=== PATIENT | male | born 1935 | race Caucasian/White ===

== ENCOUNTER 2018-12-13 08:01 | Inpatient (IN) ==
--- NOTE | 2018-12-13 08:26 | Emergency Department Note ---
Disposition Clinical Impression: Left hip pain, History of CVA with residual deficit, Inability to ambulate due to hip, Bradycardia Disposition: Admitted As Inpatient Condition: Fair Referrals: Viraj Mendiola DO [Primary Care Provider] - Forms: ED Satisfaction Letter Time of Disposition: 11:42 General Adult HPI - General Chief complaint: ED Fall Stated complaint: left hip pain Time Seen by Provider: 12/13/18 08:06 Source: patient, EMS Mode of arrival: EMS Limitations: no limitations Nursing Notes Reviewed: Yes Vital Signs Reviewed: Yes - History of Present Illness HPI Narrative: 83-year-old male history of left-sided CVA, hypertension presents an emergency department via EMS for left hip pain. States approximately a week ago while on a golf cart he attempted to step out when he twisted his ankle and fell. Since then he has been having increased discomfort in his left hip. This morning 3 hours prior to arrival at 0530 states he woke up and was having a hard time standing. Believes it could be secondary to the pain. He has normal baseline weakness of his left leg and it does appear to be near his baseline at this time. Does not recall any recent falls since then. Does not take any anticoagulants. He believes he does taken aspirin. Of note EMS checked his vitals and noticed that his heart rate was in the 30s. She was reportedly asymptomatic per the reports but 0.5 mg atropine was given and currently his heart rate is 70. The patient denies ever having palpitations, chest pain, shortness of breath, confusion or headache. The is at bedside and states he is been acting his normal self. He denies a history of cardiac ischemic disease or heart attacks in the past. He has had multiple orthopedic surgeries. Pain Scale: 9 - Related Data Home Medications Medication Instructions Recorded Confirmed Cholecalciferol (Vitamin D3) 50,000 unit PO QWEEK 10/23/15 10/23/15 [Vitamin D3] Citalopram Hydrobromide [Celexa] 20 mg PO DAILY 10/23/15 10/23/15 Ferrous Sulfate [Iron] 325 mg PO DAILY 10/23/15 10/23/15 Iron Polysaccharide Complex 150 mg PO DAILY 10/23/15 10/23/15 [Ferrex 150] Levothyroxine [Synthroid] 125 mcg PO QAM 10/23/15 10/23/15 Losartan Potassium [Cozaar] 50 mg PO DAILY 10/23/15 10/23/15 Omeprazole [PriLOSEC] 20 mg PO DAILY 10/23/15 10/23/15 cloNIDine HCl [CloNIDine HCl] 0.1 mg PO DAILY 10/23/15 10/23/15 Previous Rx's Medication Instructions Recorded HYDROcodone/Acet 5/325 mg [[place] 1 tab PO Q6H PRN #12 tab 02/03/16 5-325 mg] OxyCODONE/APAP 10/325 [Percocet 1 each PO Q6HR PRN #20 tablet 05/06/16 10/325 MG] Docusate [Colace] 100 mg PO BID #30 capsule 07/02/16 Acetaminophen [Tylenol] 1,000 mg PO TID #30 tablet 10/28/17 Allergies Allergy/AdvReac Type Severity Reaction Status Date / Time Penicillins [PCN] Allergy Hives Verified 12/30/17 15:09 All systems ED: reviewed and negative except as stated. Review of Systems: As Per HPI Constitutional: Denies: fever, chills Cardiovascular: Denies: chest pain, palpitations Respiratory: Denies: dyspnea Gastrointestinal: Denies: abdominal pain, nausea, vomiting Musculoskeletal: Reports: arthralgia. Denies: back pain Neurological: Denies: headache, weakness, numbness, paresthesias, confusion Past Medical History - Past Medical History Attestation: Yes The following information was validated with the patient. Source: patient Medical history: Reports: CVA, other Surgical history: Reports: arthroscopy, orthopedic, other (left shoulder replacement), vasectomy, other Psychiatric history: Reports: no psych history - Social History Smoking Status: Never smoker Smokeless Tobacco Status: No Alcohol use: Reports: none Drug use: Reports: none Physical Exam - General Limitations: no limitations General appearance: alert, in no apparent distress - Head Head exam: atraumatic, normocephalic, normal inspection - Eye Eye exam: Present: EOMI, other (Left eyelid droop, baseline) - ENT ENT exam: normal exam, normal oropharynx, mucous membranes moist - Neck Neck exam: Present: normal inspection, full ROM, trachea midline - Chest Chest inspection: Present: normal inspection, symmetric chest wall rise - Respiratory Respiratory exam: Present: normal lung sounds bilaterally. Absent: respiratory distress, wheezes - Cardiovascular Cardiovascular exam: Present: regular rate, normal rhythm, normal heart sounds - Expanded Cardiovascular Exam Peripheral pulses: 2+: radial (R), radial (L), dorsalis pedis (R), dorsalis pedis (L) - Abdominal Exam Abdominal exam: Present: soft, Non-Tender, normal bowel sounds. Absent: tenderness, distention, guarding, rebound, rigidity - Extremities Exam Extremities exam: Present: full ROM (Limited on his left side), other (Left upper extremity with contractures to fingers, stiffness to his left leg) - Expanded Lower Extremity Exam Hip/Pelvis exam: Present: full ROM (He is able to flex his left hip and knee, for range of motion to the right extremity), tenderness (Left hip), pelvis stable Upper leg exam: Present: normal inspection, full ROM Knee exam: Present: normal inspection, full ROM Lower leg exam: Present: normal inspection, full ROM Ankle exam: Present: normal inspection, full ROM Foot/toe exam: Present: normal inspection, full ROM Neurovascular/Tendon exam: Absent: motor deficit, sensory deficit, tendon deficit - Neurological Exam Neurological exam: Present: alert, oriented X3 - Expanded Neurological Exam Patient oriented to: Present: person, place, time Speech: Present: fluid speech Cranial nerves: EOM function (II, III, IV, ): Normal, facial sensation (V): Normal, facial palsy (VII): Abnormal Left, spinal accessory function (XI): Normal, tongue deviation (XII): Normal Motor strength - LUE: 5/5 Motor strength - RUE: 5/5 Motor strength - LLE: 5/5 Motor strength - RLE: 5/5 Upper motor neuron exam: syl neglect: Absent bilaterally, pronator drift: Absent bilaterally Sensory exam upper extremity: light touch: Normal Sensory exam lower extremity: light touch: Normal Coma Scale Eye Opening: Spontaneous Coma Scale Motor Response: Obeys Commands Coma Scale Verbal Response: Oriented Coma Scale Total: 15 - Psychiatric Psychiatric exam: Present: normal affect, normal mood - Skin Skin exam: Present: warm, dry, intact, normal color. Absent: rash, cyanosis, diaphoresis Course Course Narrative: Patient presents with left hip pain worse today when he woke up. Here he reports history of previous follow about a week ago. During this time he has been able to ambulate bear weight up until is morning. He does have a history of CVA with baseline weakness on the side. At this time will obtain some imaging of his hip and get some labs as well as CT of his head. - Reevaluation(s) Reevaluation #1: CT of the head was unremarkable. Show some chronic atrophy. His left hip showed possible fracture and we will proceed with the CT scan. His labs show baseline abnormalities including hyperkalemia and renal insufficiency. He is aware of this and it appears to be at his baseline. No aggressive treatments at this time. Pain is well-controlled at this time. Will await the CT scan for further evaluation. 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 We attempted the stand the patient up and he was unable to bear weight due to the weakness and significant discomfort. It required 2 of us to do this. He typically is able to ambulate with a cane. At this time patient will require admission for his left hip pain for possible MRI imaging. He is agreeable to this plan. His resuscitation status he is full code. Impression is left hip pain and inability to ambulate with history of CVA. He is agreeable to this plan. Time: 11:41 - Consultations Consultation #1: Spoke with on-call hospitalist matti Matt to admit for left hip pain, inability to ambulate, history of CVA with left-sided weakness. No further orde rs at this time Time: 11:41 Vital Signs Temperature 98.7 F 12/13/18 08:06 Pulse Rate 62 12/13/18 08:06 Respiratory Rate 18 12/13/18 08:06 Blood Pressure 166/84 12/13/18 08:06 O2 Sat by Pulse Oximetry 100 12/13/18 08:06 Temperature 98.7 F 12/13/18 08:06 Pulse Rate 54 12/13/18 10:47 Respiratory Rate 12 12/13/18 10:47 Blood Pressure 177/88 12/13/18 10:47 O2 Sat by Pulse Oximetry 94 12/13/18 10:47 Oxygen Delivery Oxygen Delivery Room Air Medical Decision Making - MDM Narrative Medical decision making narrative: Patient was discussed with my attending physician who agrees with ED management and final disposition. They independently evaluated the patient. Please refer to their attestation to this encounter for additional information. This note was generated by [employer] recognition software and as a result grammatical or spelling errors may occur using this program. - Medical Records Medical records reviewed: Yes I reviewed the patient's medical records. - Lab Data Lab results reviewed: Yes I reviewed the patient's lab results. Result diagrams: 12/13/18 09:04 12/13/18 09:04 Lab Results 12/13/18 12/13/18 Range/Units 09:04 09:04 WBC 3.6 L (4.3-11.1) K/mcL RBC 4.26 (4.19-5.50) M/mcL Hgb 12.5 L (12.9-16.9) g/dL Hct 37.6 (37.5-50.1) % MCV 88.3 (83.0-100.0) fL MCH 29.3 (28.0-33.3) pg MCHC 33.2 (31.6-35.5) g/dL RDW 13.4 (11.5-14.5) % Plt Count 118 L (140-400) K/mcL MPV 10.5 (9.4-12.4) fL Sodium 139 (136-145) mEq/L Potassium 5.2 H (3.5-5.1) mEq/L Chloride 108 H (98-107) mEq/L Carbon Dioxide 18 L (23-29) mEq/L BUN 30 H (8-23) mg/dL Creatinine 2.19 H (0.70-1.30) mg/dL Est GFR ( Amer) 35 L (> 60) Est GFR (Non-Af Amer) 29 L (> 60) BUN/Creatinine Ratio 14 (6-26) Glucose 81 (70-105) mg/dL Calculated Osmolality 293 (280-300) Calcium 9.3 (8.6-10.3) mg/dL Troponin I < 0.03 (< 0.04) ng/mL - Radiology Data Radiology results reviewed: Yes I reviewed the patient's radiology results. Cervical Spine CT 12/13/18 08:10 IMPRESSION: No acute abnormality of the cervical spine. D/ / Jewel Love MD / Jewel Love MD Interpreting Provider: Jewel Love MD Head CT 12/13/18 08:10 IMPRESSION: No acute intracranial abnormality or interval change control specialist the past year. Generalized atrophy and moderate old microvascular ischemic change both cerebral hemispheres. Mild to moderate prominence of the ventricular system may be related to global tissue loss but cannot exclude some hydrocephalus-stable over the past year. D/ / Viraj Askew MD / Viraj Askew MD Interpreting Provider: Viraj Askew MD Hip X-Ray 12/13/18 08:10 IMPRESSION: Possible, mildly displaced left posterior acetabular fracture. Osteopenia. D/ / Mao Browne MD / Mao Browne MD Interpreting Provider: Mao Browne MD Chest X-Ray 12/13/18 08:23 IMPRESSION: 1. No acute cardiopulmonary disease. 2. Mild cardiomegaly. D/ / 12/13/2018 08:57:39 Chrystal Erickson MD / dave Interpreting Provider: Chrystal Erickson MD Hip CT 12/13/18 09:22 IMPRESSION: 1. Mild left hip osteoarthrosis. Underlying CPPD. Finding on the plain radiograph likely represents chondrocalcinosis. 2. No acute fracture or gross dislocation. Diffuse osteopenia. 3. Atherosclerotic calcification of the vasculature. D/ / 12/13/2018 10:08:16 Donn Garcia MD / dave Interpreting Provider: Donn Garcia MD - EKG Data EKG #1 EKG attestation: Yes I reviewed and interpreted this EKG. EKG results narrative: EKG performed 812 normal sinus rhythm 66 beats per minute, normal axis, good R wave progression, it appears he has a MD interval of 361 consistent with first- degree AV block, no dropped QRS, no ST elevation or depression. Compared to prior EKG performed 11/29/2014 which does show consistent first-degree AV block but with peak T waves. No acute ischemic changes. Attestation Statement - Attestation Attestation: Patient was seen with resident physician. I reviewed the history, physical, assessment and plan, and agree with the findings. I also personally evaluated this patient and had [id number] time with this patient. 83-year-old male presents to the emergency Department chief complaint of left hip pain. Patient states that he fell approximately week ago getting out of a golf cart. He denies loss of consciousness or impacting the head. He says he falls mechanical. He said though today he woke up around 5:00 and had difficulty ambulating secondary to the level of pain it is in his left hip. He denies additional falls. Patient does have a history of stroke on that side. He has some residual weakness and some contractures secondary to that. He denies any other strokelike symptoms at this time. He does not believe there is on a anticoagulant. No fevers or chills. No chest pain or short of breath. As an incidental finding EMS noticed that his heart rate was in the 30s. EKG confirmed this. Although he is asymptomatic use given atropine eye while in route. His heart rate is been in the 70s since. Patient remains asymptomatic from a cardiac perspective. Review of systems as above remainder negative. Physical exam vital signs were stable. ENT is unremarkable. Heart regular rhythm and rate. Lungs are clear. Adamant soft nontender. Extremities patient is tender left hip especially with internal/external rotation. Position of comfort he has the muscles tightened. Neurologically he is alert and oriented. He has no new focal deficits E does have some muscle contracture and some decreased strength to the left upper and left lower extremity. There is no slurred speech or changes in facial expression at this time. Skin he is got some rashes in the left lower extremity where he says he scratched himself. And extremities otherwise there is no shortening of the limb distal pulses are intact and no obvious signs of traumatic injury. ED course. We will do cardiac and neurologic workup on him considering his history of stroke. I do not think he has had an acute stroke at this point. We will check for fracture of the hip as well as any neurologic issues or cardiac issues. Difficult to assess why the patient was bradycardic, but he was asymptomatic with this. Lab and EKG workup was unremarkable. X-ray of the hip was questionable for fracture of the acetabulum. CT scan of the head and neck and hip did not reveal any acute abnormalities. We attempted multiple times to ambulate the patient were unsuccessful in doing so. Patient just had too much pain. He will need to be admitted for PT OT and also evaluation of this bra dycardia. Hemodynamically he was stable in the emergency department. Agree with resident physician assessment plan. I agree with resident physician assessment and plan. ED procedures. I reviewed the patient's EKG as well as the resident physician interpretation and I agree with the findings. It should also be noted that I reviewed the EKG from EMS which did demonstrate a sinus bradycardia.
[2018-12-13 09:33] LABS: Hematocrit 37.6 % (37.5-50.1); Hemoglobin 12.5 g/dL (12.9-16.9); Mean Corpuscular HGB Conc 33.2 g/dL (31.6-35.5); Mean Corpuscular Hemoglobin 29.3 pg (28.0-33.3); Mean Corpuscular Volume 88.3 fL (83.0-100.0); Mean Platelet Volume 10.5 fL (9.4-12.4); Platelet Count 118 K/mcL (140-400); Red Blood Count 4.26 M/mcL (4.19-5.50); Red Cell Distribution Width 13.4 % (11.5-14.5); White Blood Count 3.6 K/mcL (4.3-11.1)
[2018-12-13 10:00] LABS: Troponin I < 0.03 ng/mL (< 0.04)
[2018-12-13 10:18] LABS: BUN/Creatinine Ratio 14 (6-26); Blood Urea Nitrogen 30 mg/dL (8-23); Calcium 9.3 mg/dL (8.6-10.3); Carbon Dioxide 18 mEq/L (23-29); Chloride 108 mEq/L (98-107); Glucose 81 mg/dL (70-105); Osmolality,Calculated 293 (280-300); Potassium 5.2 mEq/L (3.5-5.1); Sodium 139 mEq/L (136-145); eGFR For African Americans 35 (> 60); eGFR For Non-African Americans 29 (> 60)
--- NOTE | 2018-12-13 12:08 | Internal Med History&Physical ---
Date of Encounter: 12/13/18 Time of Encounter: 12:08 Internal Medicine - H&P: HPI Chief complaint: FALL History of present illness: 83-year-old male history of left-sided CVA, hypertension who presented to the ER with left hip pain that started about a week ago. The patient stated that he sustained a fall about a week when his ankle got twisted, since then he has been complaining of a progressive worsening of left hip pain to the extent that now he is unable to ambulate due to the severity of the pain. The patient has history of CVA with residual weakness on the left side. The patient is not in any anticoagulation. The patient denies chest pain, palpitation, orthopnea, paroxysmal nocturnal dyspnea, progressive worsening of lower extremity edema. The patient also denies abdominal pain, nausea, vomiting, diarrhea, changes of urinary habit or bowel habits. It was also reported that the patient has an episode of bradycardia of 30 and was treated with atropine, his heart rate is reportedly maximal normal since then. The patient did not recall any symptoms during his transport and he is not aware of a heart condition or history of coronary artery disease. The patient was evaluated by the ER staff and CT scan of the head revealed mild left hip osteoarthrosis, underlying CPPD, chondrocalcinosis, no acute fracture or gross dislocation, diffuse osteopenia. Past Med Surg Social Fam HX - Past Medical History Medical history: CVA, other Additional medical history: LLE weakness from previous CVA Psychiatric history: no psych history - Past Surgical History Surgical History: arthroscopy, orthopedic, other (left shoulder replacement), vasectomy, other Additional surgical history: jaw surgery, fx rib, colonoscopy, hammer toe, shoulder replacement - Social History Smoking Status: Never smoker Smokeless Tobacco Status: No Alcohol use: none Drug use: none Internal Medicine - H&P: Meds Cholecalciferol (Vitamin D3) [Vitamin D3] 50,000 unit PO SUTH 10/23/15 [History] Levothyroxine [Synthroid] 125 mcg PO QAM 10/23/15 [History] Losartan Potassium [Cozaar] 50 mg PO DAILY 10/23/15 [History] cloNIDine HCl [CloNIDine HCl] 0.1 mg PO BID 10/23/15 [History] Citalopram Hydrobromide [Citalopram HBr] 40 mg PO DAILY 12/13/18 [History] Donepezil [Aricept] 5 mg PO HS 12/13/18 [History] Gemfibrozil 600 mg PO BID 12/13/18 [History] Iron Polysaccharide Complex [Ferrex 150] 150 mg PO DAILY 12/13/18 [History] Pantoprazole Sodium [Protonix] 40 mg PO DAILY 12/13/18 [History] Allergy/AdvReac Type Severity Reaction Status Date / Time Penicillins [PCN] Allergy Hives Verified 12/13/18 15:35 All Systems PM: A 10-system review of systems was performed and is negative for pertinent findings except as documented above in the HPI. - Constitutional Vitals: Temp Pulse Resp BP Pulse Ox 98.7 F 54 12 177/88 94 12/13/18 08:06 12/13/18 10:47 12/13/18 10:47 12/13/18 10:47 12/13/18 10:47 General appearance: Present: A&O X 3 Exam: ` - Head Head exam: Present: atraumatic, normocephalic - Neck Neck exam general surgery: Present: supple, trachea midline. Absent: lymphadenopathy - Respiratory Respiratory exam: Present: CTAB. Absent: accessory muscle use, rales, rhonchi, wheezes - Cardiovascular Cardiovascular exam: Present: bradycardia, RRR, +S1, +S2. Absent: diastolic murmur, gallop, rubs, systolic murmur - GI/Abdominal GI/Abdominal exam: Present: normal bowel sounds, soft, no peritoneal signs. Absent: distended, tenderness - Extremities Exam Extremities exam: Present: warm, radial pulses palpable and symmetrical. Absent: calf tenderness, cyanotic, pedal edema Internal Med - H&P Results - Labs CBC & Chem 7: 12/14/18 00:54 12/14/18 00:54 Labs: Short CBC 12/13/18 Range/Units 09:04 WBC 3.6 L (4.3-11.1) K/mcL Hgb 12.5 L (12.9-16.9) g/dL Hct 37.6 (37.5-50.1) % Plt Count 118 L (140-400) K/mcL BMP 12/13/18 09:04 Sodium 139 Potassium 5.2 H Chloride 108 H Carbon Dioxide 18 L BUN 30 H Creatinine 2.19 H Glucose 81 Calcium 9.3 Cardiac Enzymes 12/13/18 Range/Units 09:04 Troponin I < 0.03 (< 0.04) ng/mL - Impressions ITS Impressions Cervical Spine CT 12/13/18 08:10 IMPRESSION: No acute abnormality of the cervical spine. D/ / Jewel Love MD / Jewel Love MD Interpreting Provider: Jewel Love MD Head CT 12/13/18 08:10 IMPRESSION: No acute intracranial abnormality or interval interchange agent the past year. Generalized atrophy and moderate old microvascular ischemic change both cerebral hemispheres. Mild to moderate prominence of the ventricular system may be related to global tissue loss but cannot exclude some hydrocephalus-stable over the past year. D/ / Viraj Askew MD / Viraj Askew MD Interpreting Provider: Viraj Askew MD Hip X-Ray 12/13/18 08:10 IMPRESSION: Possible, mildly displaced left posterior acetabular fracture. Osteopenia. D/ / Mao Browne MD / Mao Browne MD Interpreting Provider: Mao Browne MD Chest X-Ray 12/13/18 08:23 IMPRESSION: 1. No acute cardiopulmonary disease. 2. Mild cardiomegaly. D/ / 12/13/2018 08:57:39 Chrystal Erickson MD / [facility] Interpreting Provider: Chrystal Erickson MD Hip CT 12/13/18 09:22 IMPRESSION: 1. Mild left hip osteoarthrosis. Underlying CPPD. Finding on the plain radiograph likely represents chondrocalcinosis. 2. No acute fracture or gross dislocation. Diffuse osteopenia. 3. Atherosclerotic calcification of the vasculature. D/ / 12/13/2018 10:08:16 Donn Garcia MD / dave Interpreting Provider: Donn Garcia MD - Assessment and Plan (1) Left hip pain Current Visit: Yes Status: Acute Assessment and plan: he patient stated that he sustained a fall about a week when his ankle got twisted, since then he has been complaining of a progressive worsening of left hip pain to the extent that now he is unable to ambulate due to the severity of the pain. The patient was evaluated by the ER staff and CT scan of the head revealed mild left hip osteoarthrosis, underlying CPPD, chondrocalcinosis, no acute fracture or gross dislocation, diffuse osteopenia. I spoke with orthopedic surgeon contact center manager, I appreciate his recommendation, he requested MRI of the left hip to rule out occult fracture. He will see the patient in a.m. and consult. (2) History of CVA with residual deficit Current Visit: Yes Status: Acute (3) Bradycardia Current Visit: Yes Status: Acute Assessment and plan: There is a reported that the patient have an episode of bradycardia while in the ambulance, he was at symptomatic. His heart rate been around 60s while in the ER. EKG performed by ER staff , their interpolation was "normal sinus rhythm 66 beats per minute, normal axis, good R wave progression, it appears he has a [place] interval of 361 consistent with first-degree AV block, no dropped QRS, no ST elevation or depression. Compared to prior EKG performed 11/29/2014 which does show consistent first-degree AV block but with peak T waves. No acute ischemic changes" We will place the patient on telemetry. I spoke with Dr. Hunter, appreciated his input. He stated no to treat asymptomatic bradycardia until heart rate is less than 40. He will see florencianet in consult. (4) Inability to ambulate due to hip Current Visit: Yes Status: Acute Assessment and plan: We will consult also for further evaluation of the current CT scan finding, we will start DVT OT when cleared by ortho (5) CVA (cerebral vascular accident) Current Visit: No Status: Chronic Qualifiers: CVA mechanism: unspecified Qualified Code(s): I63.9 - Cerebral infarction, unspecified (6) History of DVT (deep vein thrombosis) Current Visit: No Status: Chronic (7) GERD (gastroesophageal reflux disease) Current Visit: No Status: Chronic Qualifiers: Esophagitis presence: esophagitis presence not specified Qualified Code(s): K21.9 - Gastro-esophageal reflux disease without esophagitis (8) Hypothyroidism Current Visit: No Status: Acute Assessment and plan: We will start home thyroxine. Qualifiers: Qualified Code(s): E03.9 - Hypothyroidism, unspecified (9) Hypertension Current Visit: Yes Status: Chronic Qualifiers: Hypertension type: essential hypertension Qualified Code(s): I10 - Essential (primary) hypertension (10) CKD (chronic kidney disease) stage 4, GFR 15-29 ml/min Current Visit: Yes Status: Acute Assessment and plan: Creatinine at baseline, will continue to monitor renal function, renal dosing of medication but current EGFR, avoid nephrotoxic meds. (11) Hyperkalemia Current Visit: Yes Status: Acute Assessment and plan: Multifactorial secondary to renal impairment in the setting of metabolic acidosis and potassium shift as well as angiotensin receptor inhibitors. We will hold losartan for now, start the patient on sodium bicarbonate 3 times a day and titrate dose. No reported EKG changes (12) Metabolic acidosis Current Visit: Yes Status: Acute Assessment and plan: Most likely secondary to impaired ammoniagenesis in the setting of advanced chronic kidney disease, we will start the patient on sodium bicarbonate 3 times a day and titrate dose, target bicarbonate level is 22. - Time Spent With Patient Total time spent is greater than 50% in coordination of care (as documented) at patient's floor/unit and/or counseling patient:
[2018-12-13] MEDS ORDERED: Acetaminophen 325 MG TABLET PO PRN (12:21)
[2018-12-13] MEDS ORDERED: Ondansetron 4 MG/2 ML VIAL IVP PRN (12:21)
[2018-12-13] MEDS ORDERED: *HR* HYDROcodone/Acet 5/325 mg TABLET PO PRN (12:21)
[2018-12-13] MEDS ORDERED: Naloxone 0.4 MG/ML INJ IVP PRN (12:21)
[2018-12-13] MEDS ORDERED: *HR* Atropine Sulfate 1 MG/10 ML SYRINGE IVP STA (15:27)
[2018-12-13 15:31] LABS: Troponin I < 0.03 ng/mL (< 0.04)
[2018-12-13] MEDS: 0.9 % Sodium Chloride 1,000 ML IVC SCH (21:31)
[2018-12-14 01:05] LABS: Basophils % 0.4 %; Eosinophils # 0.2 K/mcL (0.0-0.6); Eosinophils % 3.2 %; Hematocrit 35.5 % (37.5-50.1); Hemoglobin 11.9 g/dL (12.9-16.9); Immature Granulocytes % 0.2 % (0-4); Lymphocytes % 21.1 %; Mean Corpuscular HGB Conc 33.5 g/dL (31.6-35.5); Mean Corpuscular Hemoglobin 30.3 pg (28.0-33.3); Mean Corpuscular Volume 90.3 fL (83.0-100.0); Mean Platelet Volume 10.1 fL (9.4-12.4); Monocytes # 0.5 K/mcL (0.0-1.3); Monocytes % 9.9 %; Neutrophils # 3.1 K/mcL (1.6-8.9); Platelet Count 113 K/mcL (140-400); Red Blood Count 3.93 M/mcL (4.19-5.50); Red Cell Distribution Width 13.2 % (11.5-14.5); Segmented Neutrophils % 65.2 %; White Blood Count 4.7 K/mcL (4.3-11.1)
[2018-12-14 01:13] LABS: INR 1.1; Prothrombin Time 12.7 Seconds (9.4-12.1)
[2018-12-14 01:16] LABS: Activated Partial Thrombo Time 40.4 Seconds (26.0-36.0)
[2018-12-14 01:21] LABS: Albumin 3.6 g/dL (3.5-5.7); Albumin/Globulin Ratio 1.4 (1.1-2.2); Bilirubin,Total 0.4 mg/dL (0.3-1.0); Calcium 8.9 mg/dL (8.6-10.3); Chol/HDL Ratio 3.8 (0-4.9); Globulin 2.6 g/dL (2.4-3.5); Magnesium 1.6 mg/dL (1.6-2.6); Phosphorous 3.4 mg/dL (2.7-4.5); Total Protein 6.2 g/dL (6.4-8.9)
[2018-12-14] MEDS: 0.9 % Sodium Chloride 1,000 ML IVC SCH (04:10)
--- NOTE | 2018-12-14 07:15 | Orthopedic Consult Note ---
Date of Encounter: 12/14/18 Time of Encounter: 07:12 Assessment and Plan (1) Pain in left hip Current Visit: Yes Status: Acute I did have a long discussion with the patient regarding the diagnosis. He does have proximal lateral thigh pain consistent with mild greater trochanteric bursitis. He says this has begun to feel better. My recommendation is oral anti-inflammatories, therapy, and outpatient follow-up. I will obtain an x-ray of the left ankle as this was the initial injury. Weightbearing as tolerated on the bilateral lower extremities. Follow up with [facility] upon discharge. I will be around for reconsultation as needed for any new issues. I have reviewed each of the pertinent components of this chart and any other pertinent medical component(s) including but not limited to pertinent application of the chief complaint, history of present illness, current medication, medical history, allergies, family history, medical history, surgical history, social history, review of systems, vital signs, and any other portion of the pertinent patient medical record directly or indirectly involved with this patient care that is pertinent based on my medical decision process. BRAYAN Wilhelm History of Present Illness HPI: Mr. Haynes is a 83 year old male who is admitted to the hospitalist. 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 The patient twisted his ankle and fell about a week ago and has had progressive proximal lateral thigh pain. He is unable to characterize the quality of the pain, just says it hurts. This has prevented him from being able to ambulate. He is undergone x-rays, CT scan, and an MRI and orthopedics is consulted to assist in the evaluation of the patient. On my evaluation this morning the patient indicates that his pain has improved, however he has not tried to ambulate yet today. He denies any numbness, tingling, or any other associated signs or symptoms. No modifying factors. Past Med Surg Social Fam HX - Past Medical History Medical history: CVA, other Additional medical history: LLE weakness from previous CVA Psychiatric history: no psych history - Past Surgical History Surgical History: arthroscopy, orthopedic, other (left shoulder replacement), vasectomy, other Additional surgical history: jaw surgery, fx rib, colonoscopy, hammer toe, shoulder replacement - Social History Smoking Status: Never smoker Smokeless Tobacco Status: No Alcohol use: none Drug use: none Medications and Allergies Cholecalciferol (Vitamin D3) [Vitamin D3] 50,000 unit PO SUTH 10/23/15 [History] Levothyroxine [Synthroid] 125 mcg PO QAM 10/23/15 [History] Losartan Potassium [Cozaar] 50 mg PO DAILY 10/23/15 [History] cloNIDine HCl [CloNIDine HCl] 0.1 mg PO BID 10/23/15 [History] Citalopram Hydrobromide [Citalopram HBr] 40 mg PO DAILY 12/13/18 [History] Donepezil [Aricept] 5 mg PO HS 12/13/18 [History] Gemfibrozil 600 mg PO BID 12/13/18 [History] Iron Polysaccharide Complex [Ferrex 150] 150 mg PO DAILY 12/13/18 [History] Pantoprazole Sodium [Protonix] 40 mg PO DAILY 12/13/18 [History] Allergy/AdvReac Type Severity Reaction Status Date / Time Penicillins [PCN] Allergy Hives Verified 12/13/18 15:35 All Systems Reviewed: Constitutional -The patient denies any fevers, chills, or feelings of illness Neurologic -The patient denies any numbness, tingling, or burning pains Physical Exam - Constitutional Vitals: Temp Pulse Resp BP Pulse Ox 98.1 F 45 14 165/73 97 12/14/18 04:23 12/14/18 04:23 12/14/18 04:23 12/14/18 04:23 12/14/18 04:23 Constitutional -Vitals reviewed -The patient is well developed and well nourished. -Mood is pleasant. -The patient is well groomed. Psychiatric -The patient is fully alert and oriented x 3. Respiratory: -Respiratory effort normal Abdomen: -Soft abdomen -Non tender -Non distended: Left upper extremity: -No deformities. The overlying skin is intact. No obvious signs of acute trauma. -No tenderness to palpation throughout. -No significant pain with passive motion of the shoulder, elbow, wrist, and fingers within the limits of the bed. -Able to make an "OK" sign, cross the index and long fingers, and extend the thumb. -Sensation grossly intact to light touch throughout the median, radial, and ulnar distributions. -Radial pulse is present; Fingers have good capillary refill. Right upper extremity: -No deformities. The overlying skin is intact. No obvious signs of acute trauma. -No tenderness to palpation throughout. -No significant pain with passive motion of the shoulder, elbow, wrist, and fingers within the limits of the bed. -Able to make an "OK" sign, cross the index and long fingers, and extend the thumb. -Sensation grossly intact to light touch throughout the median, radial, and ulnar distributions. -Radial pulse is present; Fingers have good capillary refill. Left lower extremity: -No deformities. The overlying skin is intact. No obvious signs of acute trauma. -Mild tenderness over the greater trochanteric bursa -No pain with passive motion of the hip, knee, ankle, and toes within the limits of the bed. -No pain with axial loading of the thigh. -Able to dorsiflex and plantarflex the ankle and toes. -Sensation is grossly intact to light touch throughout the sural, saphenous, superficial peroneal, and deep peroneal distributions. -Toes have good capillary refill. Right lower extremity: -No deformities. The overlying skin is intact. No obvious signs of acute trauma. -No tenderness to palpation throughout. -No pain with passive motion of the hip, knee, ankle, and toes within the limits of the bed. -No pain with axial loading of the thigh. -Able to dorsiflex and plantarflex the ankle and toes. -Sensation is grossly intact to light touch throughout the sural, saphenous, superficial peroneal, and deep peroneal distributions. -Toes have good capillary refill. Diagnostic Imaging: I did personally review and interpret x-rays, CT scan, and MRI of the left hip which show no fractures. There is degenerative change, however. Results - Labs Result Diagrams: 12/14/18 00:54 12/14/18 00:54 Labs: Abnormal lab results WBC 3.6 K/mcL (4.3-11.1) L 12/13/18 09:04 RBC 3.93 M/mcL (4.19-5.50) L 12/14/18 00:54 Hgb 11.9 g/dL (12.9-16.9) L 12/14/18 00:54 Hct 35.5 % (37.5-50.1) L 12/14/18 00:54 Plt Count 113 K/mcL (140-400) L 12/14/18 00:54 PT 12.7 Seconds (9.4-12.1) H 12/14/18 00:54 APTT 40.4 Seconds (26.0-36.0) H 12/14/18 00:54 Potassium 5.2 mEq/L (3.5-5.1) H 12/13/18 09:04 Chloride 108 mEq/L (98-107) H 12/13/18 09:04 Carbon Dioxide 18 mEq/L (23-29) L 12/13/18 09:04 BUN 33 mg/dL (8-23) H 12/14/18 00:54 2.20 mg/dL (0.70-1.30) H 12/14/18 00:54 Est GFR ( Amer) 35 (> 60) L 12/14/18 00:54 Est GFR (Non-Af Amer) 29 (> 60) L 12/14/18 00:54 ALT 6 Units/L (7-52) L 12/14/18 00:54 154 Units/L (34-104) H 12/14/18 00:54 6.2 g/dL (6.4-8.9) L 12/14/18 00:54 34 mg/dL (40-59) L 12/14/18 00:54 TSH 0.150 mcIU/mL (0.340-5.600) L 12/13/18 14:59 H & H 12/13/18 12/14/18 Range/Units 09:04 00:54 Hgb 12.5 L 11.9 L (12.9-16.9) g/dL Hct 37.6 35.5 L (37.5-50.1) % All other labs normal. Consult Discharge Plan - Plan Referrals: Viraj Mendiola DO [Primary Care Provider] -
--- NOTE | 2018-12-14 08:03 | Cardiology Consult Note ---
<Kiah Head N - Last Filed: 12/14/18 11:11> Date of Encounter: 12/14/18 Time of Encounter: 08:03 Assessment and Plan (1) Bradycardia Current Visit: Yes Status: Acute Suspect multifactorial etiology including underlying conduction abnormality (based on patient's age), medication effect, and thyroid dysfunction. ECG is significant for 1st degree AV block. Telemetry review shows average HR 51, with occasional nocturnal pauses. On evaluation, patient denies any chest pain, shortness of breath, fatigue, dizziness, or lightheadedness. Medical history is notable for hypothyroidism, with home medication of synthroid 125mcg daily. TSH was notably decreased, at 0.150 on laboratory studies. Recommendations: - At this time, no indication for pacemaker placement, as patient has evidence of reversible causes for this problem. - Decrease clonidine from 0.1mg BID to 0.1mg daily. - Recommend adjustment of thyroid medication to achieve euthyroid state. - Echocardiogram pending. Patient will need followup and additional workup with outpatient cardiology clinic. (2) Hypertension Current Visit: Yes Status: Chronic History of hypertension, with home medications of losartan 50mg daily and clonidine 0.1mg BID. - Decrease clonidine to 0.1mg daily. - Adjustment of additional antihypertensive agents as needed to achieve BP goal. Qualifiers: Hypertension type: essential hypertension Qualified Code(s): I10 - Essential (primary) hypertension (3) Thyroid dysfunction Current Visit: Yes Status: Acute Discussion w patient/family: The assessment and plan as outlined above was discussed with the patient and/or family members who expressed understanding and agreement. All questions were answered. Thank you for involving us in the care of your patient. Please call with any questions. History of Present Illness Consult date: 12/14/18 Requesting physician: Michelle Forbes Consult reason: Bradycardia Chief complaint: Left hip pain History of present illness: Mr. Haynes is a 83 year old male with a history of hypertension, hypothyroidism, and CVA with left-sided weakness. He presented to the ED via EMS for evaluation of left hip pain that started after a mechanical fall approximately one week prior. Per ED documentation, patient was noted to have HR in the 30s by EMS, and was administered 0.5mg atropine, with improvement in HR to the 70s. Patient denied any symptoms, including shortness of breath, lightheadedness, fatigue, or chest discomfort. Patient has no history of heart disease or dysfunction. Cardiology consult was placed for recommendations regarding asymptomatic bradycardia. Past Med Surg Social Fam HX - Past Medical History Medical history: CVA, other Additional medical history: LLE weakness from previous CVA Psychiatric history: no psych history - Past Surgical History Surgical History: arthroscopy, orthopedic, other (left shoulder replacement), vasectomy, other Additional surgical history: jaw surgery, fx rib, colonoscopy, hammer toe, shoulder replacement - Social History Smoking Status: Never smoker Smokeless Tobacco Status: No Alcohol use: none Drug use: none Medications and Allergies Cholecalciferol (Vitamin D3) [Vitamin D3] 50,000 unit PO SUTH 10/23/15 [History] Levothyroxine [Synthroid] 125 mcg PO QAM 10/23/15 [History] Losartan Potassium [Cozaar] 50 mg PO DAILY 10/23/15 [History] cloNIDine HCl [CloNIDine HCl] 0.1 mg PO BID 10/23/15 [History] Citalopram Hydrobromide [Citalopram HBr] 40 mg PO DAILY 12/13/18 [History] Donepezil [Aricept] 5 mg PO HS 12/13/18 [History] Gemfibrozil 600 mg PO BID 12/13/18 [History] Iron Polysaccharide Complex [Ferrex 150] 150 mg PO DAILY 12/13/18 [History] Pantoprazole Sodium [Protonix] 40 mg PO DAILY 12/13/18 [History] Allergy/AdvReac Type Severity Reaction Status Date / Time Penicillins [PCN] Allergy Hives Verified 12/13/18 15:35 All Systems Review: The remainder of the systems were reviewed and are negative - Constitutional Constitutional: fatigue (fatigue since CVA ~20 years ago), no weakness - Cardiovascular Cardiovascular: no chest pain at rest, no chest pain with exertion, no dyspnea at rest, no dyspnea on exertion, no irregular heart rhythm, no radiating jaw, neck or arm pain, no leg edema, no lightheadedness, no palpitations, no syncope - Respiratory Respiratory: no cough, no dyspnea Physical Examination Vital Signs, Last 4 Hours Temp Pulse Resp BP Pulse Ox 12/14/18 07:44 98.4 F 42 18 143/58 100 12/14/18 04:23 98.1 F 45 14 165/73 97 General: Conversant, No Apparent Distress HEENT: Atraumatic, Normocephaly, Mucus Membranes Moist Cardiac: Reg Rate and Rhythm, Normal S1 and S2, No Murmur Lungs: Normal Breath Sounds, No Wheeze, Rales, Rhonchi Neuro: Alert and responsive, No focal deficits noted Abdomen: Soft, Non-Tender Skin: No rashes noted on visualized skin Musculoskeletal: No Chest Wall Tenderness Extremities: No Clubbing, No Cyanosis, No Edema, Normal Pulses Results 12/14/18 00:54 12/14/18 00:54 Lab Results 12/13/18 12/13/18 12/13/18 09:04 09:04 14:59 WBC 3.6 L Hgb 12.5 L Hct 37.6 Plt Count 118 L INR APTT Sodium 139 Potassium 5.2 H Chloride 108 H Carbon Dioxide 18 L BUN 30 H Creatinine 2.19 H Glucose 81 Calcium 9.3 Magnesium Total Bilirubin AST ALT Alkaline Phosphatase Troponin I < 0.03 < 0.03 TSH 0.150 L 12/13/18 12/14/18 12/14/18 21:41 00:54 00:54 WBC 4.7 Hgb 11.9 L Hct 35.5 L Plt Count 113 L INR APTT Sodium Potassium Chloride Carbon Dioxide BUN Creatinine Glucose Calcium Magnesium Total Bilirubin AST ALT Alkaline Phosphatase Troponin I < 0.03 < 0.03 TSH 12/14/18 12/14/18 00:54 00:54 WBC Hgb Hct Plt Count INR 1.1 APTT 40.4 H Sodium 139 Potassium 5.0 Chloride 107 Carbon Dioxide 23 BUN 33 H Creatinine 2.20 H Glucose 102 Calcium 8.9 Magnesium 1.6 Total Bilirubin 0.4 AST 13 ALT 6 L Alkaline Phosphatase 154 H Troponin I TSH Consult Discharge Plan - Plan Referrals: Viraj Mendiola DO [Primary Care Provider] - <Rosario Awan - Last Filed: 12/14/18 12:48> Date of Encounter: 12/14/18 - Attending Attestation I examined this patient and my medical decision-making was reviewed with the Resident Physician. I agree with the documented findings, disposition and treatment plan. Mr. Haynes presents with a mechanical fall. Incidentally discovered to be bradyardic. Denies pre syncope or syncope. Endorses dyspnea with exertion. AAOx3, NAD at bedside. No appreciable cardiac mumur on exam, breathing comfortably Labs reviewed demonstrating abnormal TSH, stable CKD, serial troponin negative. Telemetry shows average HR 51 bpm, noctural pauses up to 2.6 seconds ECG 12/13 - NSR HR 66bpm, 1degree AVB, no acute findings ECG 12/14 - NSR HR 43 bpm, 1degree AVB, no acute findings TTE pending. Impression/Plan: 1. Bradycardia: May have pre-existing conduction system disease in setting of clonidine use. He is asymptomatic. Blood pressure is adequate. Clonidine stopped abruptly yesterday. Recommend observation - transfer to for close care. Will review with EP service. Avoid AVN blockers. Correct thyroid a bnormality. 2. Hypertension: May be exacerbated by acutely stopping clonidine. Recommend observation. Assessment and Plan Discussion w patient/family: The assessment and plan as outlined above was discussed with the patient and/or family members who expressed understanding and agreement. All questions were answered. Thank you for involving us in the care of your patient. Please call with any questions. History of Present Illness History of present illness: Mr. Haynes is a 83 year old male All Systems Review: The remainder of the systems were reviewed and are negative Results 12/14/18 00:54 12/14/18 00:54 Lab Results 12/13/18 12/13/18 12/14/18 14:59 21:41 00:54 WBC Hgb Hct Plt Count INR APTT Sodium Potassium Chloride Carbon Dioxide BUN Creatinine Glucose Calcium Magnesium Total Bilirubin AST ALT Alkaline Phosphatase Troponin I < 0.03 < 0.03 < 0.03 TSH 0.150 L 12/14/18 12/14/18 12/14/18 00:54 00:54 00:54 WBC 4.7 Hgb 11.9 L Hct 35.5 L Plt Count 113 L INR 1.1 APTT 40.4 H Sodium 139 Potassium 5.0 Chloride 107 Carbon Dioxide 23 BUN 33 H Creatinine 2.20 H Glucose 102 Calcium 8.9 Magnesium 1.6 Total Bilirubin 0.4 AST 13 ALT 6 L Alkaline Phosphatase 154 H Troponin I TSH
--- NOTE | 2018-12-14 08:48 | Neurology - Consult Note ---
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 Neurology will sign off at this time please call should any further needs arise. FINDINGS: INTRACRANIAL STRUCTURES/VENTRICLES: There is no acute infarct. There is volume loss with chronic white matter microvascular ischemic disease characterized by periventricular white matter signal abnormality. There is evidence of a chronic bleed within the deep white matter of the right cerebral hemisphere with associated volume loss and ex vacuo dilatation of the right lateral ventricle. Normal expected signal voids are present within the vessels at the base of skull. History of Present Illness Chief complaint: Findings of chronic bleed on MRI of brain HPI: Mr. Haynes is a 83 year old male with a PMH of CVA approximately 20 years ago with residual LLE weakness, HTN. Presents to [facility] with a chief complaint of progressive worsening left hip pain S/P mechanical fall and increased left leg weakness. Neurology has been consulted for evaluation of abnormal findings on MRI. MRI findings revealed evidence of a chronic bleed within the deep white matter of the right cerebral hemisphere. In regards to the patient's neurological status he denies any headaches, visual disturbances, paresthesias, weakness, dysphagia, dysarthria, headache or neck pain, dizziness, chest pain or palpitations. At the time I suspect this morning he reports of the left leg weakness is resolved and hip pain has improved dramatically. In regards to the findings of the MRI. There are no new neurological deficits on my examination the patient reports that he is at baseline state. Past Med Surg Social Fam HX - Past Medical History Medical history: CVA, other Additional medical history: LLE weakness from previous CVA Psychiatric history: no psych history - Past Surgical History Surgical History: arthroscopy, orthopedic, other (left shoulder replacement), vasectomy, other Additional surgical history: jaw surgery, fx rib, colonoscopy, hammer toe, shoulder replacement - Social History Smoking Status: Never smoker Smokeless Tobacco Status: No Alcohol use: none Drug use: none Medications and Allergies Cholecalciferol (Vitamin D3) [Vitamin D3] 50,000 unit PO SUTH 10/23/15 [History] Levothyroxine [Synthroid] 125 mcg PO QAM 10/23/15 [History] Losartan Potassium [Cozaar] 50 mg PO DAILY 10/23/15 [History] cloNIDine HCl [CloNIDine HCl] 0.1 mg PO BID 10/23/15 [History] Citalopram Hydrobromide [Citalopram HBr] 40 mg PO DAILY 12/13/18 [History] Donepezil [Aricept] 5 mg PO HS 12/13/18 [History] Gemfibrozil 600 mg PO BID 12/13/18 [History] Iron Polysaccharide Complex [Ferrex 150] 150 mg PO DAILY 12/13/18 [History] Pantoprazole Sodium [Protonix] 40 mg PO DAILY 12/13/18 [History] Allergy/AdvReac Type Severity Reaction Status Date / Time Penicillins [PCN] Allergy Hives Verified 12/13/18 15:35 All Systems: The remainder of the systems were reviewed and are negative Review of Systems: REVIEW OF SYSTEMS GENERAL: Negative for any nausea, vomiting, fevers, chills NEUROLOGIC: Negative for any blurry vision, blind spots, double vision, facial asymmetry, dysphagia, dysarthria, hemiparesis, hemisensory deficits, vertigo, ataxia, seizures, paralysis, tingling, numbness, Positive-LLE weakness and pain; this has resolved HEENT: Negative for any head trauma, neck trauma CARDIAC: Negative for any chest pain, dyspnea, or palpitations MUSCULOSKELETAL: Positive-loss of strength to LLE; this has resolved. Chronic limitations to activity tolerated Physical Examination - Vital Signs Vital Signs: Initial Vital Signs Temp Pulse Resp BP Pulse Ox 98.7 F 62 18 166/84 100 12/13/18 08:06 12/13/18 08:06 12/13/18 08:06 12/13/18 08:06 12/13/18 08:06 - Exam Exam: Examination: General Examination: *CONSTITUTIONAL: Alert and oriented x3, no acute distress *GENERAL APPEARANCE OF PATIENT elderly male who appears frail and chronically ill *EYES: pupils equal, round, reactive to light and accommodation, conjunctiva clear *CARDIOVASCULAR no peripheral edema, distal temperature normal, dorsalis pedis pulses normal. See vitals Musculoskeletal: *GAIT AND STATION not assessed; patient ambulatory with DME only. Awaiting PT/OT eval *ASSESSMENT OF MUSCLE STRENGTH IN THE UPPER AND LOWER EXTREMITIES right deltoid, bicep, tricep, measurement superintendent strength 4/5. - - Left deltoid, bicep, tricep, measurement superintendent strength 3/5. - - Right hip flexors ,anterior tibialis, dorsoflexion of the foot 3/5. - - Left hip flexor, anterior tibialis and dorsiflexion of the foot 3/5 but overall weaker than right *MUSCLE TONE IN THE UPPER AND LOWER EXTREMITIES normal. 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 *FUND OF KNOWLEDGE aware of current events, past history, vocabulary *MENTAL attention span and concentration normal. *CN II optic fundi were normal, no papilledema noted. *CN III,IV, PERRLA extraocular eye movements were full, no nystagmus and no ptosis noted. *CN V shows normal sensation and jaw opens symmetrically. *CN VII shows normal facial movement symmetrically, upper and lower bilaterally. *CN VIII shows no significant hearing loss on exam *CN IX,,X palate elevated symmetrically *CN XI normal strength in the sternocleidomastoid muscles, symmetrical s houlder shrugging. *CN XII tongue protruded in the midline, with normal strength and movement . *SENSORY EXAMINATION light touch intact *REFLEXES: deep tendon reflexes were normal and symmetrical , grade 1/4 diffusely, no pathological reflexes were noted. *CEREBELLAR TESTING abnormal left normal finger to nose, abnormal left heel/knee/santacruz; LUE, LLE drift which is chronic *PAIN LEVEL 0/10 Results - Laboratory Findings CBC and BMP: 12/14/18 00:54 12/14/18 00:54 Abnormal lab findings: Abnormal lab results WBC 3.6 K/mcL (4.3-11.1) L 12/13/18 09:04 RBC 3.93 M/mcL (4.19-5.50) L 12/14/18 00:54 Hgb 11.9 g/dL (12.9-16.9) L 12/14/18 00:54 Hct 35.5 % (37.5-50.1) L 12/14/18 00:54 Plt Count 113 K/mcL (140-400) L 12/14/18 00:54 PT 12.7 Seconds (9.4-12.1) H 12/14/18 00:54 APTT 40.4 Seconds (26.0-36.0) H 12/14/18 00:54 Potassium 5.2 mEq/L (3.5-5.1) H 12/13/18 09:04 Chloride 108 mEq/L (98-107) H 12/13/18 09:04 Carbon Dioxide 18 mEq/L (23-29) L 12/13/18 09:04 BUN 33 mg/dL (8-23) H 12/14/18 00:54 2.20 mg/dL (0.70-1.30) H 12/14/18 00:54 Est GFR ( Amer) 35 (> 60) L 12/14/18 00:54 Est GFR (Non-Af Amer) 29 (> 60) L 12/14/18 00:54 ALT 6 Units/L (7-52) L 12/14/18 00:54 154 Units/L (34-104) H 12/14/18 00:54 6.2 g/dL (6.4-8.9) L 12/14/18 00:54 34 mg/dL (40-59) L 12/14/18 00:54 TSH 0.150 mcIU/mL (0.340-5.600) L 12/13/18 14:59 - Diagnostic Findings Additional findings: FINDINGS: INTRACRANIAL STRUCTURES/VENTRICLES: There is no acute infarct. There is volume loss with chronic white matter microvascular ischemic disease characterized by periventricular white matter signal abnormality. There is evidence of a chronic bleed within the deep white matter of the right cerebral hemisphere with associated volume loss and ex vacuo dilatation of the right lateral ventricle. Normal expected signal voids are present within the vessels at the base of skull. Consult Discharge Plan - Plan Referrals: Viraj Mendiola DO [Primary Care Provider] -
--- NOTE | 2018-12-14 12:53 | Internal Med Progress Note ---
Hospitalist Progress Note - Encounter Date of Encounter: 12/14/18 Time of Encounter: 12:51 - Subjective Interval History: Pt reports feeling OK today. States he tripped in his garage and could not get up, and that's how he hurt his L hip. Glad nothing is broken, and willing to work with PT/OT. He denies dizziness or LOC leading to fall, stating it was m echanical related to his ankle. Currently, no SOB, CP, palpitations, dizziness, or confusion. - Exam Vitals: Temp Pulse Resp BP Pulse Ox 98.4 F 42 18 143/58 100 12/14/18 07:44 12/14/18 07:44 12/14/18 07:44 12/14/18 07:44 12/14/18 07:44 Exam: General: NAD, good eye contact, well appearing, elderly Thoracic: Normal breath sounds b/l, no wheezing or crackles Cardio: Normal S1 and S2, regular rhythm, bradycardic Abdomen: Soft, nontender Extremities: Warm, well perfused. DP pulses 2+ b/l. No edema. Neuro: Awake, fully oriented. Speech fluent - Summary of Assessment and Plan Summary of Assessment and Plan: Tony Haynes is an 83 M w hx CVA, HTN, HLD, CKD4, hypothyroidism, OA, anx/dep, who p/w L hip pain after a fall, found to be bradycardic, ECG showing 2:1 block. Heart block causing significant bradycardia: - Cardio and EP following, appreciate co-management - d/c clonidine - move to step-down and place pacer pads on pt, atropine prn symptomatic mary - NPO@MN for PPM L hip pain: no fx on MRI - Ortho following, appreciate rec's - PT/OT for d/c rec's - SW consult CKD4: noted, renally dose meds HTN: uncontrolled, continue losartan 50, add amlodipine 5, d/c clonidine as above CVA/HLD: home gemfibrozil, MRI stable Anx/dep: home celexa 40 Hypothyroidism: TSH mildly suppressed, decrease synthroid from 125 to 112 and repeat TFTs in 4-6 weeks PPx: SCDs FEN: cardiac then NPO@MN, no MIVF Lines: PIV Consults: Ortho, Cardio, EP Code: Full Dispo: patient requires inpatient eval and management at this time. Anticipate 2-3 days. Awaiting PT/OT rec's re placement Internal Medicine: Result - Labs CBC & Chem 7: 12/14/18 00:54 12/14/18 00:54 Labs: Short CBC 12/14/18 Range/Units 00:54 WBC 4.7 (4.3-11.1) K/mcL Hgb 11.9 L (12.9-16.9) g/dL Hct 35.5 L (37.5-50.1) % Plt Count 113 L (140-400) K/mcL Neutrophils # 3.1 (1.6-8.9) K/mcL BMP 12/14/18 00:54 Sodium 139 Potassium 5.0 Chloride 107 Carbon Dioxide 23 BUN 33 H Creatinine 2.20 H Glucose 102 Calcium 8.9 Cardiac Enzymes 12/13/18 12/13/18 12/14/18 Range/Units 14:59 21:41 00:54 Troponin I < 0.03 < 0.03 < 0.03 (< 0.04) ng/mL Liver Function 12/14/18 Range/Units 00:54 Total Bilirubin 0.4 (0.3-1.0) mg/dL AST 13 (13-39) Units/L ALT 6 L (7-52) Units/L Alkaline Phosphatase 154 H (34-104) Units/L Albumin 3.6 (3.5-5.7) g/dL - ABG Interpretation ABG results: PT/INR, D-dimer PT 12.7 Seconds (9.4-12.1) H 12/14/18 00:54 - Impressions Impressions Chest X-Ray 12/13/18 08:23 IMPRESSION: 1. No acute cardiopulmonary disease. 2. Mild cardiomegaly. D/ / 12/13/2018 08:57:39 Chrystal Erickson MD / dave Interpreting Provider: Chrystal Erickson MD Hip CT 12/13/18 09:22 IMPRESSION: 1. Mild left hip osteoarthrosis. Underlying CPPD. Finding on the plain radiograph likely represents chondrocalcinosis. 2. No acute fracture or gross dislocation. Diffuse osteopenia. 3. Atherosclerotic calcification of the vasculature. D/ / 12/13/2018 10:08:16 Donn Garcia MD / dave Interpreting Provider: Donn Garcia MD Hip MRI 12/13/18 14:06 IMPRESSION: No acute osseous abnormality. D/ / Dwayne Stafford MD / Dwayne Stafford MD Interpreting Provider: Dwayne Stafford MD Brain MRI 12/13/18 17:33 IMPRESSION: No acute infarct. D/ / Hernan Bose MD / Hernan Bose MD Interpreting Provider: Hernan Bose MD Ankle X-Ray 12/14/18 07:18 IMPRESSION: No acute osseous abnormality of the left ankle D/ / Britton Adan MD / Britton Adan MD Interpreting Provider: Britton Adan MD Consult Discharge Plan - Plan Referrals: Viraj Mendioal DO [Primary Care Provider] -
[2018-12-14] MEDS ORDERED: *HR* Atropine Sulfate 1 MG/10 ML SYRINGE ONE (13:32)
[2018-12-14] MEDS: amLODIPine 5 MG TABLET PO SCH (13:57)
[2018-12-14] MEDS ORDERED: Clindamycin 900 MG/50 ML 900 MG/50 ML IV.SOLN IVPB ONE (14:30)
--- NOTE | 2018-12-14 14:32 | Electrophysiology Consult Note ---
<Ewa Zhang - Last Filed: 12/14/18 14:33> Date of Encounter: 12/14/18 Time of Encounter: 14:00 Assessment and Plan (1) AV block Status: Acute Admitted with worsening ankle pain s/p mechanical fall last week. Found to be bradycardiac with HR's in the 30's per EMS (no strips), was given atropine x1 dose with HR improvement to the 70s. Presenting ECG: NSR 66 BPM with 1st degree AVB, ME 361 ms. Telemetry review overnight, avg HR=51 (SB, 1st degree AVB). 2:1 AVB noted on telemetry review today, ECG this afternoon also shows 2:1 AVB. Home medications include clonidine--has been held since admission. Recommend gradual discontinuation of medication. TSH low, on Synthroid--recommend adjustment per primary team. Hx of CKD, at baseline. HR high 20's-30's at bedside. Remains asymptomatic at this time. Hypertensive--norvasc added (Clonidine held upon admission yesterday). Recommend PPM; unfortunately patient had late lunch, will make NPO after MN exce pt medications. Patient is agreeable to proceed. Discussion w patient/family: The assessment and plan as outlined above was discussed with the patient and/or family members who expressed understanding and agreement. All questions were answered. Thank you for involving us in the care of your patient. Please call with any questions. The patient will be discussed and reviewed with Dr. Sam Wiggins; changes to be made accordingly. History of Present Illness Consult date: 12/14/18 Requesting physician: Jordan Tang Consult reason: 2:1 AVB Chief complaint: Mechanical fall History of present illness: Mr. Haynes is a 83 year old male with PMHx significant of remote CVA, HTN, DVT s/p IVC filter, and hypothyroidism who presented to the ED after a mechanical fall last week. He notes that he twisted his ankle; pain in ankle worsened over the past week which prompted ED evaluation. En route to ED per EMS, he was noted to have HR in the 30's and was given x1 dose of atropine with adequate HR response. He was asymptomatic. He denies hx of pre-syncope, syncope, dizziness, or dyspnea. He does report worsening fatigue over the past 1 year which he attributed to "old age." Telemetry reviewed overnight, avg HR=51 SB, nocturnal pauses (max 2.6 seconds); he was transferred to nursing unit d/t recommendations of higher acuity of care. This afternoon he was noted to have a rhythm change, 2:1 AVB. EP consulted today for bradycardia. Upon exam, HR high 20's-30's 2:1 AVB, hypertension noted. He continues to be asymptomatic without CV complaints. Past Med Surg Social Fam HX - Past Medical History Attestation: Yes The following information was validated with the patient. Source: patient Medical history: CVA, other Additional medical history: LLE weakness from previous CVA Psychiatric history: no psych history - Past Surgical History Surgical History: arthroscopy, orthopedic, other (left shoulder replacement), vasectomy, other Additional surgical history: jaw surgery, fx rib, colonoscopy, hammer toe, shoulder replacement - Social History Smoking Status: Never smoker Smokeless Tobacco Status: No Alcohol use: none Drug use: none - Family History Mother History Unknown: Yes Father Living Status: Age at : 89 Medications and Allergies Cholecalciferol (Vitamin D3) [Vitamin D3] 50,000 unit PO SUTH 10/23/15 [History] Citalopram Hydrobromide [Citalopram HBr] 40 mg PO DAILY 12/13/18 [History] Donepezil [Aricept] 5 mg PO HS 12/13/18 [History] Gemfibrozil 600 mg PO BID 12/13/18 [History] Iron Polysaccharide Complex [Ferrex 150] 150 mg PO DAILY 12/13/18 [History] Pantoprazole Sodium [Protonix] 40 mg PO DAILY 12/13/18 [History] Levothyroxine [Synthroid] 112 mcg PO 0630 #30 tablet 12/16/18 [Rx] Losartan Potassium [Cozaar] 25 mg PO DAILY #0 12/16/18 [Rx] amLODIPine [Norvasc] 5 mg PO DAILY #30 tablet 12/16/18 [Rx] Allergy/AdvReac Type Severity Reaction Status Date / Time Penicillins [PCN] Allergy Hives Verified 12/13/18 15:35 All Systems Review: The remainder of the systems were reviewed and are negative - Cardiovascular Cardiovascular: as per HPI Physical Examination General: Conversant, No Apparent Distress HEENT: Atraumatic, Normocephaly, Mucus Membranes Moist Neck: No JVD, Normal carotid pulses Cardiac: No Murmur, Other (bradycardiac) Lungs: Normal Breath Sounds, No Wheeze, Rales, Rhonchi Neuro: Alert and responsive, Other (LLE weakness s/p CVA 20 years ago) Abdomen: Soft, Non-Tender Skin: No rashes noted on visualized skin Musculoskeletal: No Chest Wall Tenderness Extremities: No Clubbing, No Cyanosis, No Edema, Normal Pulses Results 12/14/18 00:54 12/14/18 00:54 Lab Results 12/13/18 12/13/18 12/14/18 14:59 21:41 00:54 WBC Hgb Hct Plt Count INR APTT Sodium Potassium Chloride Carbon Dioxide BUN Creatinine Glucose Calcium Magnesium Total Bilirubin AST ALT Alkaline Phosphatase Troponin I < 0.03 < 0.03 < 0.03 TSH 0.150 L 12/14/18 12/14/18 12/14/18 00:54 00:54 00:54 WBC 4.7 Hgb 11.9 L Hct 35.5 L Plt Count 113 L INR 1.1 APTT 40.4 H Sodium 139 Potassium 5.0 Chloride 107 Carbon Dioxide 23 BUN 33 H Creatinine 2.20 H Glucose 102 Calcium 8.9 Magnesium 1.6 Total Bilirubin 0.4 AST 13 ALT 6 L Alkaline Phosphatase 154 H Troponin I TSH Active Medications Acetaminophen (Tylenol) 650 mg PO Q6HR PRN PRN Reason: Mild Pain/Fever Stop: 06/14/19 12:22 Hydrocodone Bitart/Acetaminophen ([place] 5-325 Mg) 1 tab PO Q6HR PRN PRN Reason: Moderate Pain Stop: 06/14/19 12:22 Amlodipine Besylate (Norvasc) 5 mg PO DAILY [facility]; Protocol Stop: 06/15/19 13:01 Last Admin: 12/14/18 13:57 Dose: 5 mg Documented by: Citalopram Hydrobromide (Celexa) 40 mg PO DAILY [facility] Stop: 06/16/19 09:01 Donepezil HCl (Aricept) 5 mg PO HS [facility] Stop: 06/15/19 21:01 Gemfibrozil (Lopid) 600 mg PO BID [facility] Stop: 06/15/19 21:01 Clindamycin Phosphate/Dextrose (Cleocin Premix 900 Mg/50 Ml) 900 mg in 50 mls @ 100 mls/hr IVPB PREOP ONE Stop: 12/14/18 14:59 Levothyroxine Sodium (Synthroid) 112 mcg PO 0630 [facility] Stop: 06/16/19 09:01 Losartan Potassium (Cozaar) 50 mg PO DAILY [facility] Stop: 06/16/19 09:01 Naloxone HCl (Narcan) 0.4 mg IVP Q2MPRN PRN PRN Reason: SEE COMMENTS Stop: 06/14/19 12:22 Ondansetron HCl (Zofran) 4 mg IVP Q8HR PRN PRN Reason: Nausea And Vomiting Stop: 06/14/19 12:22 Polysaccharide Iron Complex (Ferrex 150) 150 mg PO DAILY [facility] Stop: 06/16/19 09:01 Sodium Bicarbonate (Sodium Bicarbonate) 325 mg PO TID [facility] Stop: 06/14/19 15:01 Last Admin: 12/14/18 08:51 Dose: 325 mg Documented by: - Imaging and Cardiology Echo: pending - EKG Interpretation EKG results cardiology: personally reviewed Consult Discharge Plan - Plan Instructions: Pacemaker (GEN) Referrals: one week, wound check [Other] (Office will call with follow up appointment) four to, six week check [Other] (Office will call with follow up appointment) Sam Wiggins MD [Partnered Physician] - (Office will call with follow up appointment) Rosa Maria Mcgill CNP [Advanced Practice Nurse] - 12/22/18 8:30 am (Dr. Mendiola is on vacation so you will see Rosa Maria Mcgill this time) Prescriptions: amLODIPine [Norvasc] 5 mg PO DAILY #30 tablet Levothyroxine [Synthroid] 112 mcg PO 0630 #30 tablet <Sam Wiggins - Last Filed: 12/16/18 13:57> Date of Encounter: 12/16/18 - Attending Attestation I have personally performed a face to face evaluation on this patient. I have reviewed and agree with the care plan. History and Exam by me shows: Intermittent 2:1 AV block with syncope. Pacemaker recommended. he agrees. Assessment and Plan Discussion w patient/family: The assessment and plan as outlined above was discussed with the patient and/or family members who expressed understanding and agreement. All questions were answered. Thank you for involving us in the care of your patient. Please call with any questions. History of Present Illness History of present illness: Mr. Haynes is a 83 year old male All Systems Review: The remainder of the systems were reviewed and are negative Results 12/15/18 01:12 12/16/18 01:11 Lab Results 12/16/18 01:11 Sodium 137 Potassium 5.1 Chloride 106 Carbon Dioxide 22 L BUN 35 H Creatinine 2.39 H
[2018-12-14] MEDS ORDERED: *HR* Atropine Sulfate 1 MG/10 ML SYRINGE IVP PRN (14:59)
--- NOTE | 2018-12-14 17:27 | Electrocardiograph Report ---
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
[2018-12-15 01:47] LABS: Hematocrit 36.7 % (37.5-50.1); Hemoglobin 12.4 g/dL (12.9-16.9); Mean Corpuscular HGB Conc 33.8 g/dL (31.6-35.5); Mean Corpuscular Hemoglobin 29.5 pg (28.0-33.3); Mean Corpuscular Volume 87.4 fL (83.0-100.0); Mean Platelet Volume 10.4 fL (9.4-12.4); Platelet Count 124 K/mcL (140-400); Red Cell Distribution Width 13.1 % (11.5-14.5); White Blood Count 5.4 K/mcL (4.3-11.1)
[2018-12-15 02:04] LABS: Calcium 8.9 mg/dL (8.6-10.3); Magnesium 1.9 mg/dL (1.6-2.6)
--- NOTE | 2018-12-15 07:25 | Internal Med Progress Note ---
Hospitalist Progress Note - Encounter Date of Encounter: 12/15/18 Time of Encounter: 07:25 - Subjective Interval History: Pt feels OK today, no acute events overnight. HR continues to range from 30s- 50s, pt asymptomatic and unaware. Amenable to PPM placement later. Has yet to be seen by PT/OT. - Exam Vitals: Temp Pulse Resp BP Pulse Ox 98.3 F 53 16 145/98 96 12/15/18 06:50 12/15/18 06:50 12/15/18 06:50 12/15/18 06:50 12/15/18 06:50 Exam: General: NAD, good eye contact, well appearing, elderly Thoracic: Normal breath sounds b/l, no wheezing or crackles Cardio: Normal S1 and S2, regular rhythm, bradycardic Abdomen: Soft, nontender Extremities: Warm, well perfused. DP pulses 2+ b/l. No edema. Neuro: Awake, fully oriented. Speech fluent - Summary of Assessment and Plan Summary of Assessment and Plan: Tony Haynes is an 83 M w hx CVA, HTN, HLD, CKD4, hypothyroidism, OA, anx/dep, who p/w L hip pain after a fall, found to be bradycardic, ECG showing 2:1 block. Heart block causing significant bradycardia: no atropine since admission and no pacing yet required - d/c'ed clonidine on admission - Cardio and EP following, appreciate co-management - plan for PPM today per EP L hip pain: no fx on MRI - Ortho following, appreciate rec's - PT/OT for d/c rec's - SW consult CKD4: noted, renally dose meds HTN: uncontrolled, continue losartan 50 and new amlodipine 5, d/c clonidine as above CVA/HLD: home gemfibrozil, MRI stable Anx/dep: home celexa 40 Hypothyroidism: TSH mildly suppressed, decrease synthroid from 125 to 112 and repeat TFTs in 4-6 weeks PPx: SCDs FEN: NPO@MN then cardiac after procedure, no MIVF Lines: PIV Consults: Ortho, Cardio, EP Code: Full Dispo: patient requires inpatient eval and management at this time, anticipate d/c tomorrow, awaiting PT/OT rec's re HH v placement Internal Medicine: Result - Labs CBC & Chem 7: 12/15/18 01:12 12/15/18 01:12 Labs: Short CBC 12/15/18 Range/Units 01:12 WBC 5.4 (4.3-11.1) K/mcL Hgb 12.4 L (12.9-16.9) g/dL Hct 36.7 L (37.5-50.1) % Plt Count 124 L (140-400) K/mcL BMP 12/15/18 01:12 Sodium 136 Potassium 5.0 Chloride 107 Carbon Dioxide 22 L BUN 33 H Creatinine 2.13 H Glucose 91 Calcium 8.9 - ABG Interpretation ABG results: PT/INR, D-dimer PT 12.7 Seconds (9.4-12.1) H 12/14/18 00:54 - Impressions Impressions Ankle X-Ray 12/14/18 07:18 IMPRESSION: No acute osseous abnormality of the left ankle D/ / Britton Adan MD / Britton Adan MD Interpreting Provider: Britton Adan MD Echocardiogram 12/14/18 09:39 Impressions: Sinus bradycardia. HR 30s. LVEF 60-65%. Normal LV chamber size, wall thickness and function. Mild left ventricular diastolic dysfunction. Normal right ventricular structure and function. Mild tricuspid regurgitation. Mild pulmonary hypertension. Left Ventricular Wall Motion: Rest Echo Findings All wall segments showed normal motion. Findings: Study Quality * Technically adequate exam. ECG Findings * Sinus bradycardia. HR 30s. Left Ventricle * LVEF 60-65%. * Normal LV chamber size, wall thickness and function. * Mild left ventricular diastolic dysfunction. Right Ventricle * Normal right ventricular structure and function. Left Atrium * Mildly dilated left atrium. Right Atrium * Normal right atrial size. Interatrial Septum * Interatrial septum not well evaluated. Aortic Valve * Trileaflet aortic valve. * Mildly calcified aortic valve leaflets. * Trace aortic regurgitation. * No aortic stenosis. Mitral Valve * Mild mitral annular calcification * Trace mitral regurgitation. * No mitral stenosis. Tricuspid Valve * Normal tricuspid valve structure. * Mild tricuspid regurgitation. * Mild pulmonary hypertension. Pulmonic Valve * Pulmonic valve is not well visualized. Aorta * Normally sized aortic root. Pericardium * The pericardium appears normal. IVC * Normal IVC dimensions and inspiratory collapse. Pulmonary Artery * Normal visualized portions of the main pulmonary artery. Consult Discharge Plan - Plan Referrals: one week, wound check [Other] four to, six week check [Other] Sam Wiggins MD [Partnered Physician] - Viraj Mendiola DO [Primary Care Provider] -
[2018-12-15] MEDS ORDERED: Clindamycin 900 MG/50 ML 900 MG/50 ML IV.SOLN IVPB ONE (08:00)
[2018-12-15] MEDS: Iron Polysaccharide Complex 150 MG CAPSULE PO SCH (09:02)
[2018-12-15] MEDS: amLODIPine 5 MG TABLET PO SCH (09:03)
--- NOTE | 2018-12-15 11:00 | Electrocardiograph Report ---
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
[2018-12-15] MEDS ORDERED: *HR* FentaNYL (PF) 100 MCG/2 ML VIAL ONE (11:55)
[2018-12-15] MEDS ORDERED: *HR* Midazolam HCl 5 MG/5 ML VIAL IVP ONE (11:55)
[2018-12-15] MEDS ORDERED: 0.9 % Sodium Chloride 500 ML ONE (11:56)
[2018-12-15] MEDS ORDERED: Clindamycin 600 MG/50 ML 1,200 MG/100 ML IV.SOLN IVPB ONE (11:56)
[2018-12-15] MEDS ORDERED: 0.9 % Sodium Chloride 1,000 ML ONE (11:57)
--- NOTE | 2018-12-15 12:09 | Pre-Sedation Evaluation ---
Pre-sedation evaluation - Pre-sedation checklist Date of procedure: 12/15/18 Procedure: pacemaker Recent Vitals: Last Vital Signs Temp 98.2 F 12/15/18 11:15 Pulse 75 12/15/18 11:15 Resp 18 12/15/18 11:15 BP 169/66 12/15/18 11:15 Pulse Ox 97 12/15/18 11:15 H&P (including ROS) documented in medical record: Yes Previous reaction to sedatives/anesthetics: No Dietary Status: NPO after Midnight Airway Assessment: Patient can open mouth completely, TMJ function normal, Micrognathia (under-bite, receding chin) absent Possible difficult airway: No ASA Classification *see protocol: CLASS II-Mild systemic disease Plan of Care: Pt appropriate candidate for procedure/moderate/conscious sedation, Risks/benefits of procedure/sedation discussed w/ patient/family
--- NOTE | 2018-12-15 17:31 | Electrocardiograph Report ---
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
[2018-12-15] MEDS ORDERED: Clindamycin 900 MG/50 ML 900 MG/50 ML IV.SOLN IVPB SCH (18:00)
[2018-12-16 02:03] LABS: BUN/Creatinine Ratio 15 (6-26); Blood Urea Nitrogen 35 mg/dL (8-23); Carbon Dioxide 22 mEq/L (23-29); Chloride 106 mEq/L (98-107); Potassium 5.1 mEq/L (3.5-5.1); Sodium 137 mEq/L (136-145); eGFR For African Americans 32 (> 60); eGFR For Non-African Americans 26 (> 60)
--- NOTE | 2018-12-16 07:19 | Discharge Summary ---
- NOTES TO OUTPATIENT PROVIDER Notes to Outpatient Provider: L hip pain after a fall, found to be bradycardic from AV block, pacemaker inserted, needs outpatient PT/OT Date of Encounter: 12/16/18 Time of Encounter: 07:19 Hospital course: Dear Doctors, I recently had the opportunity to care for this patient during their recent hospital stay at [facility]. Tony Haynes is an 83 M w hx CVA, HTN, HLD, CKD4, hypothyroidism, OA, anx/dep, who presented at time of admission on 12/13 with L hip pain after a fall. In the ED, pt found to be bradycardic w HR in the 30s, ECG showing 2:1 block. XR hip without fracture. Pt admitted. In the hospital, Cardio EP evaluated patient and inserted a permanent pacemaker on 12/15. Ortho consulted who obtained MRI of hip to eval for occult fracture which was negative. PT/OT evaluated patient and was safe for discharge home. 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 Pacemaker insertion. Follow up: PCP 1 week, CardioEP 1 week wound check / and 4-6 weeks device check / [address] Wiggins Tests pending: none Med changes: - new amlodipine 5 - stop clonidine - decrease synthroid from 125 to 112 - decrease losartan from 50 to 25 Mental status: awake, fully oriented Code status: Battery Inspector spent on discharge: 35 minutes It has been my pleasure participating in this patient's care. Please contact me with any questions or concerns regarding their hospital stay. Sincerely, Rico Perkins MD - Discharge Medications Prescriptions: New amLODIPine [Norvasc] 5 mg PO DAILY #30 tablet Levothyroxine [Synthroid] 112 mcg PO 0630 #30 tablet Continued Cholecalciferol (Vitamin D3) [Vitamin D3] 50,000 unit PO SUTH Citalopram Hydrobromide [Citalopram HBr] 40 mg PO DAILY Donepezil [Aricept] 5 mg PO HS Gemfibrozil 600 mg PO BID Iron Polysaccharide Complex [Ferrex 150] 150 mg PO DAILY Pantoprazole Sodium [Protonix] 40 mg PO DAILY Changed Losartan Potassium [Cozaar] 25 mg PO DAILY #0 Discontinued Levothyroxine [Synthroid] 125 mcg PO QAM cloNIDine HCl [CloNIDine HCl] 0.1 mg PO BID Home Medications: Cholecalciferol (Vitamin D3) [Vitamin D3] 50,000 unit PO SUTH 10/23/15 [History] Citalopram Hydrobromide [Citalopram HBr] 40 mg PO DAILY 12/13/18 [History] Donepezil [Aricept] 5 mg PO HS 12/13/18 [History] Gemfibrozil 600 mg PO BID 12/13/18 [History] Iron Polysaccharide Complex [Ferrex 150] 150 mg PO DAILY 12/13/18 [History] Pantoprazole Sodium [Protonix] 40 mg PO DAILY 12/13/18 [History] Levothyroxine [Synthroid] 112 mcg PO 0630 #30 tablet 12/16/18 [Rx] Losartan Potassium [Cozaar] 25 mg PO DAILY #0 12/16/18 [Rx] amLODIPine [Norvasc] 5 mg PO DAILY #30 tablet 12/16/18 [Rx] Allergies/Adverse Reactions: Allergy/AdvReac Type Severity Reaction Status Date / Time Penicillins [PCN] Allergy Hives Verified 12/13/18 15:35 Date of admission: 12/14/18 18:04 Primary care physician: Viraj Mendiola DO Consults: 12/13/18 12:23 Consult to Orthopedic Surgery [CONS] Stat Consulting Provider: [facility] Reason for Consult: Left hip arthritis Time Notified: 12:24 Call Completed: Yes 12/13/18 23:22 Consult to Neurology [CONS] Routine Consulting Provider: [facility] Reason for Consult: Patient had MRI of the head/brain done d/t previous CVA hx. 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 Call Completed: Yes 12/14/18 05:51 Consult to Cardiology [CONS] Routine Comment: Consulting Provider: [facility] Reason for Consult: Bradycardia. Call Completed: Yes 12/14/18 08:09 Consult to Occupational Therapy [CONS] Routine Comment: Evaluate, develop and implement POC Reason for Consult: L hip/leg pain Does patient have active BEDREST order?: No Is patient medically & hemodynamically stable?: Yes Consult to Physical Therapy [CONS] Routine Comment: Evaluate, develop and implement POC Reason for Consult: L hip/leg pain Does patient have active BEDREST order?: No Is patient medically & hemodynamically stable?: Yes 12/14/18 14:30 Consult to Electrophysiology (EP) [CONS] Routine Consulting Provider: Electrophysiology [facility] Reason for Consult: Bradycardia Call Completed: Yes - Constitutional Vitals: Temp Pulse Resp BP Pulse Ox 98.8 F 73 15 143/106 98 12/15/18 23:10 12/15/18 23:10 12/15/18 23:10 12/15/18 23:10 12/15/18 23:10 Exam: General: NAD, good eye contact, well appearing, elderly Thoracic: Normal breath sounds b/l, no wheezing or crackles Cardio: Normal S1 and S2, regular rhythm and rate Abdomen: Soft, nontender Extremities: Warm, well perfused. DP pulses 2+ b/l. No edema. Neuro: Awake, fully oriented. Speech fluent - Patient Status Disposition: Home, Self-Care Condition: Fair Functional capacity at discharge: independent ambulation Overall status at discharge: patient is progressing back to baseline - Discharge Instructions Instructions: Pacemaker (GEN) Follow Up With: one week, wound check [Other] (Office will call with follow up appointment) four to, six week check [Other] (Office will call with follow up appointment) Sam Wiggins MD [Partnered Physician] - (Office will call with follow up appointment) Rosa Maria Mcgill CNP [Advanced Practice Nurse] - 12/22/18 8:30 am (Dr. Mendiola is on vacation so you will see Rosa Maria Mcgill this time) - Diet and Activity Activity: increase activity as tolerated Diet: advance to your usual diet
[2018-12-16 07:38] VITALS: BP 149/76
[2018-12-16] MEDS: amLODIPine 5 MG TABLET PO SCH (09:02)
[2018-12-16] MEDS: Iron Polysaccharide Complex 150 MG CAPSULE PO SCH (09:02)
--- NOTE | 2018-12-16 09:12 | Electrophysiology ProgressNote ---
Date of Encounter: 12/16/18 Time of Encounter: 09:09 Assessment and Plan (1) AV block Current Visit: Yes Status: Acute Admitted with worsening ankle pain s/p mechanical fall last week. Found to be bradycardiac with HR's in the 30's per EMS (no strips), was given atropine x1 dose with HR improvement to the 70s. Presenting ECG: NSR 66 BPM with 1st degree AVB, NV 361 ms. 2:1 AVB noted on telemetry and ECG. Home medications include clonidine--has been held since admission. Recommend gradual discontinuation of medication. TSH low, on Synthroid--recommend adjustment per primary team. Hx of CKD, at baseline. Pt had PPM insertion yesterday. Device check and CXR okay. Device site healing well. Steri strips intact. No bleeding, hematoma or ecchymosis noted. Cardiology and EP signing off. Reconsult PRN. Will coordinate outpt follow-up in 7-10 days for wound check, 4-6 weeks device check and in [address] Sam Wiggins. (2) Pacemaker Current Visit: Yes Status: Acute As above. Pt had PPM insertion yesterday for AV block/bradycardia. Device check and CXR okay. Device site healing well. Steri strips intact. No bleeding, hematoma or ecchymosis noted. Cardiology and EP signing off. Reconsult PRN. Will coordinate outpt follow-up in 7-10 days for wound check, 4-6 weeks device check and in [address] Sam Wiggins. Discussion w patient/family: The assessment and plan as outlined above was discussed with the patient and/or family members who expressed understanding and agreement. All questions were answered. Thank you for involving us in the care of your patient. Please call with any questions. I will discuss all the above with Dr. Sam Wiggins and make changes as necessary. Subjective Principal diagnosis: AV block Interval history: No acute complaints this AM. Objective Vital Signs, Last 4 Hours Temp Pulse Resp BP Pulse Ox 12/16/18 07:35 98.2 F 75 18 149/76 97 Vital Signs Temp Pulse Resp BP Pulse Ox 12/16/18 07:35 98.2 F 75 18 149/76 97 12/15/18 23:10 98.8 F 73 15 143/106 98 12/15/18 21:00 98.8 F 66 16 143/74 96 06/18/19 16:30 66 16 142/90 97 12/15/18 16:12 98.4 F 68 18 170/90 96 12/15/18 15:30 73 16 154/71 98 12/15/18 15:00 72 16 167/86 97 12/15/18 14:30 75 17 157/78 95 12/15/18 14:15 75 16 129/79 92 12/15/18 14:00 72 16 153/111 96 12/15/18 13:45 98.7 F 70 16 178/95 96 12/15/18 11:15 98.2 F 75 18 169/66 97 Intake and Output 12/15/18 12/16/18 12/16/18 23:59 07:59 15:59 Intake Total 1090 / 1330 240 / 240 Balance 1090 / 730 240 / 240 Intake: IV Fluids 50 / 50 Cleocin Premix 900 MG/50 ML 900 50 / 50 mg In 50 ml @ 50 mls/hr IVPB Q12HR [facility] Rx#:[id number] Oral 1040 / 1280 240 / 240 Other: Meal Dinner Breakfast Percent of Meal Consumed 100% 100% Stool Size Large Stool Consistency formed General: Conversant, No Apparent Distress HEENT: Atraumatic, Normocephaly, Mucus Membranes Moist Neck: No JVD, Normal carotid pulses Cardiac: Reg Rate and Rhythm, Normal S1 and S2, No Murmur Lungs: Normal Breath Sounds, No Wheeze, Rales, Rhonchi Neuro: Alert and responsive, No focal deficits noted Abdomen: Soft, Non-Tender Skin: Other (left chest site healing well. No bleeding, hematoma or ecchymosis noted. Steri strips intact.) Musculoskeletal: No Chest Wall Tenderness Extremities: No Clubbing, No Cyanosis, No Edema, Normal Pulses Results 12/15/18 01:12 12/16/18 01:11 Lab Results 12/16/18 01:11 Sodium 137 Potassium 5.1 Chloride 106 Carbon Dioxide 22 L BUN 35 H Creatinine 2.39 H BMP 12/16/18 Range/Units 01:11 Sodium 137 (136-145) mEq/L Potassium 5.1 (3.5-5.1) mEq/L Chloride 106 (98-107) mEq/L Carbon Dioxide 22 L (23-29) mEq/L BUN 35 H (8-23) mg/dL Creatinine 2.39 H (0.70-1.30) mg/dL Impressions Fluoroscopy 12/15/18 12:46 IMPRESSION: Please see operative report for further details. D/ / Jose Carlos Treadwell MD / Jose Carlos Treadwell MD Interpreting Provider: Jose Carlos Treadwell MD Chest X-Ray 12/15/18 13:35 IMPRESSION: New pacemaker. No pneumothorax. Mild atelectasis or infiltrate in the left lung base with a small left effusion. D/ / 12/15/2018 14:05:41 Muna Cody MD / [facility] Interpreting Provider: Muna Cody MD Chest X-Ray 12/16/18 06:00 IMPRESSION: 1. Left-sided dual lead pacemaker with leads in the region of the right atrium and right ventricle. 2. Stable mild left lung base consolidation and mild effusion. No pneumothorax. D/ / 12/16/2018 08:31:58 Rolando Gannon MD / [facility] Interpreting Provider: Rolando Gannon MD Active Medications Acetaminophen (Tylenol) 650 mg PO Q6HR PRN PRN Reason: Mild Pain/Fever Stop: 06/14/19 12:22 Hydrocodone Bitart/Acetaminophen ([place] 5-325 Mg) 1 tab PO Q6HR PRN PRN Reason: Moderate Pain Stop: 06/14/19 12:22 Last Admin: 12/15/18 23:08 Dose: 1 tab Documented by: Amlodipine Besylate (Norvasc) 5 mg PO DAILY [place]; Protocol Stop: 06/15/19 13:01 Last Admin: 12/16/18 09:02 Dose: 5 mg Documented by: Atropine Sulfate (Atropine) 0.5 mg IVP ONCE PRN PRN Reason: symptomatic bradycardia Stop: 06/15/19 15:00 Citalopram Hydrobromide (Celexa) 40 mg PO DAILY [place] Stop: 06/16/19 09:01 Last Admin: 12/16/18 09:02 Dose: 40 mg Documented by: Donepezil HCl (Aricept) 5 mg PO HS [facility] Stop: 06/15/19 21:01 Last Admin: 12/15/18 20:13 Dose: 5 mg Documented by: Gemfibrozil (Lopid) 600 mg PO BID [place] Stop: 06/15/19 21:01 Last Admin: 12/16/18 09:02 Dose: 600 mg Documented by: Levothyroxine Sodium (Synthroid) 112 mcg PO 0630 [place] Stop: 06/16/19 09:01 Last Admin: 12/16/18 05:52 Dose: 112 mcg Documented by: Losartan Potassium (Cozaar) 25 mg PO DAILY [facility] Stop: 06/16/19 09:01 Last Admin: 12/16/18 09:02 Dose: 25 mg Documented by: Naloxone HCl (Narcan) 0.4 mg IVP Q2MPRN PRN PRN Reason: SEE COMMENTS Stop: 06/14/19 12:22 Ondansetron HCl (Zofran) 4 mg IVP Q8HR PRN PRN Reason: Nausea And Vomiting Stop: 06/14/19 12:22 Polysaccharide Iron Complex (Ferrex 150) 150 mg PO DAILY [facility] Stop: 06/16/19 09:01 Last Admin: 12/16/18 09:02 Dose: 150 mg Documented by: Sodium Bicarbonate (Sodium Bicarbonate) 325 mg PO TID [facility] Stop: 06/14/19 15:01 Last Admin: 12/16/18 09:02 Dose: 325 mg Documented by: - Imaging and Cardiology Echo: report reviewed Consult Discharge Plan - Plan Referrals: one week, wound check [Other] four to, six week check [Other] Sam Wiggins MD [Partnered Physician] - Viraj Mendiola DO [Primary Care Provider] - Prescriptions: amLODIPine [Norvasc] 5 mg PO DAILY #30 tablet Levothyroxine [Synthroid] 112 mcg PO 0630 #30 tablet
== END 2018-12-16 11:17 | disposition home or self-care (01) | DRG 243 ==
LOC: EMEROOARM 08:01 → 3ANU 08:01 → SUATTDRO 12:14 → 3ANU 12:49 → 2NENU 19:01 → 2NNU 12-14 12:56
PROVIDERS: ADMIT Internal Medicine Nephrology; ATTEND Internal Medicine

== ENCOUNTER 2020-02-07 14:56 | Observation (INO) ==
[2020-02-07] MEDS ORDERED: Isovue-370 500 ML BOTTLE IVP ONE (15:42)
[2020-02-07] MEDS ORDERED: Tdap (Boostrix) Vaccine 0.5 ML SYRINGE IM ONE (15:43)
[2020-02-07] MEDS ORDERED: Lidocaine 1% 20 ML MDV INFILT ONE (15:43)
[2020-02-07 16:44] LABS: INR 1.1; Prothrombin Time 12.1 Seconds (9.4-12.1)
[2020-02-07 16:46] LABS: Activated Partial Thrombo Time 42.6 Seconds (26.0-36.0)
[2020-02-07 16:47] LABS: Basophils % 0.5 %; Eosinophils # 0.1 K/mcL (0.0-0.6); Eosinophils % 1.7 %; Hematocrit 34.2 % (37.5-50.1); Hemoglobin 11.2 g/dL (12.9-16.9); Immature Granulocytes % 0.5 % (0-4); Lymphocytes # 0.7 K/mcL (0.6-4.6); Lymphocytes % 11.8 %; Mean Corpuscular HGB Conc 32.7 g/dL (31.6-35.5); Mean Corpuscular Hemoglobin 29.7 pg (28.0-33.3); Mean Corpuscular Volume 90.7 fL (83.0-100.0); Monocytes # 0.5 K/mcL (0.0-1.3); Monocytes % 8.9 %; Neutrophils # 4.6 K/mcL (1.6-8.9); Platelet Count 128 K/mcL (140-400); Red Blood Count 3.77 M/mcL (4.19-5.50); Red Cell Distribution Width 13.6 % (11.5-14.5); Segmented Neutrophils % 76.6 %
[2020-02-07 17:50] LABS: Albumin/Globulin Ratio 1.4 (1.1-2.2); Bilirubin,Total 0.4 mg/dL (0.3-1.0); Calcium 9.3 mg/dL (8.6-10.3); Globulin 2.8 g/dL (2.4-3.5); Total Protein 6.8 g/dL (6.4-8.9)
[2020-02-07] MEDS ORDERED: Calcium Gluconate 1gm/50mL 1 GM/50 ML BAG IVPB ONE (18:05)
[2020-02-07] MEDS ORDERED: Sodium Bicarbonate 50 MEQ/50 ML VIAL IVP ONE (18:05)
[2020-02-07] MEDS ORDERED: Insulin Human Regular 5 UNIT in 0.9 % Sodium Chloride 10 ML IV ONE (18:05)
[2020-02-07] MEDS ORDERED: *HR* Dextrose 50 % in Water (Vial) 50 ML VIAL IVP ONE (18:05)
[2020-02-07] MEDS ORDERED: 0.9 % Sodium Chloride 1,000 ML IV ONE (18:34)
[2020-02-07 20:14] LABS: Calcium 9.1 mg/dL (8.6-10.3); Magnesium 1.7 mg/dL (1.6-2.6); Phosphorous 1.9 mg/dL (2.7-4.5); Potassium 4.3 mEq/L (3.5-5.1)
[2020-02-07] MEDS ORDERED: D5% in Water 1,000 ML IVC PRN (20:18)
[2020-02-07] MEDS ORDERED: Naloxone 0.4 MG/ML INJ IVP PRN (20:18)
[2020-02-07] MEDS ORDERED: Dextrose Gel 15 GM/37.5 ML TUBE PO PRN ×2 (20:18)
[2020-02-07] MEDS ORDERED: *HR* Dextrose 50 % in Water (Vial) 50 ML VIAL IVP PRN (20:18)
[2020-02-07] MEDS ORDERED: Acetaminophen 325 MG TABLET PO PRN (20:47)
[2020-02-07] MEDS ORDERED: Insulin LISPRO 300 UNITS/3 ML VIAL SQ SCH (21:00)
[2020-02-07] MEDS: Insulin LISPRO 300 UNITS/3 ML VIAL SQ SCH (22:14)
[2020-02-07] MEDS: cloNIDine HCL 0.1 MG TABLET PO SCH (22:25)
[2020-02-07 22:58] LABS: Bilirubin,Urine Negative (Negative); Blood,Urine Negative (Negative); Clarity,Urine Clear (Clear); Color,Urine Colorless (Yellow); Glucose,Urine (UA) Normal (Normal); Ketones,Urine Negative (Negative); Leukocyte Esterase,Urine Negative (Negative); Nitrite,Urine Negative (Negative); PH,Urine 6.5 pH Units (5.0-8.0); Protein,Urine Trace mg/dL (Neg-Trace); Specific Gravity,Urine 1.011 (1.010-1.025); Urobilinogen,Urine Normal (Normal)
[2020-02-07] MEDS ORDERED: *HR* Promethazine 25 MG/ML VIAL IVP PRN (23:20)
[2020-02-07 23:34] LABS: Potassium,Urine 20.1 mEq/L; Protein/Creatinine Ratio,Urine 0.59 mg/mg (0.00-0.20)
[2020-02-08 02:18] LABS: Hematocrit 30.4 % (37.5-50.1); Hemoglobin 10.1 g/dL (12.9-16.9); Mean Corpuscular HGB Conc 33.2 g/dL (31.6-35.5); Mean Corpuscular Hemoglobin 30.1 pg (28.0-33.3); Mean Corpuscular Volume 90.7 fL (83.0-100.0); Mean Platelet Volume 10.2 fL (9.4-12.4); Platelet Count 112 K/mcL (140-400); Red Blood Count 3.35 M/mcL (4.19-5.50); Red Cell Distribution Width 13.6 % (11.5-14.5); White Blood Count 4.8 K/mcL (4.3-11.1)
[2020-02-08 02:27] LABS: Calcium 8.6 mg/dL (8.6-10.3); Magnesium 1.7 mg/dL (1.6-2.6); Phosphorous 2.9 mg/dL (2.7-4.5); Potassium 4.8 mEq/L (3.5-5.1)
[2020-02-08] MEDS: cloNIDine HCL 0.1 MG TABLET PO SCH (07:44)
[2020-02-08] MEDS: Insulin LISPRO 300 UNITS/3 ML VIAL SQ SCH ×2 (08:11→13:18)
[2020-02-08] MEDS ORDERED: amLODIPine 5 MG TABLET PO SCH (09:00)
[2020-02-08 11:21] VITALS: BP 114/58
== END 2020-02-08 16:13 | disposition home or self-care (01) ==
LOC: EMEROOARM 14:56 → 2ANU 14:56 → SUATTDRO 18:52 → 2ANU 20:17
PROVIDERS: ADMIT Internal Medicine; ATTEND Internal Medicine